=== PATIENT | male | born 1950 | race Caucasian/White ===

== ENCOUNTER 2018-09-07 10:56 | Emergency (ER) | payer SELFPAY ==
[~2018-09-07] VITALS: Ht 177.8 cm; Wt 101.6 kg
[2018-09-07] MEDS ORDERED: PIPERACILLIN-TAZOB 3.375GM 100 ML IV ONE (11:15)
[2018-09-07] MEDS ORDERED: CLINDAMYCIN 900MG IV 50 ML IV ONE (11:15)
[2018-09-07 11:54] LABS: Basophils # (auto) 0.1 uL; Eosinophils # (auto) 0.4 uL; Eosinophils % (auto) 5.6 % (0.0-7.0); Hematocrit 48.6 % (41.0-53.0); Hemoglobin 16.5 g/dL (13.5-17.5); Lymphocytes # (auto) 2.4 uL; Lymphocytes % (auto) 30.5 % (10.0-50.0); Mean Corpuscular Hemoglobin 29.9 pg (28.0-32.0); Mean Corpuscular Volume 87.9 fL (80.0-100.0); Monocytes # (auto) 0.5 uL; Monocytes % (auto) 6.5 % (0.0-12.0); Neutrophils # (auto) 4.4 uL; Neutrophils % (auto) 56.4 % (37.0-80.0); Nucleated Red Blood Cells % 0.1 %; Platelet Count (auto) 292 10^3/uL (140-450); Red Blood Cells 5.53 10^6/uL (4.5-5.90); Red Cell Distribution Width 13.4 % (11.8-14.3); White Blood Cell 7.8 10^3/uL (4.4-10.8)
[2018-09-07 12:06] LABS: Albumin 3.7 g/dL (3.4-5.0); Calcium 9.3 mg/dL (8.5-10.1); Potassium 3.3 mmol/L (3.5-5.1)
[2018-09-07 12:09] LABS: BUN/Creatinine Ratio 22.1; Bilirubin, Total 0.6 mg/dL (0.2-1.0); Total Protein 7.8 g/dL (6.4-8.2)
[2018-09-07] MEDS ORDERED: POTASSIUM EFFERVESENT TAB 25 MEQ PO ONE (12:45)
[2018-09-07 13:23] VITALS: BP 144/90
== END 2018-09-07 17:15 | disposition home or self-care (01) ==
LOC: ER 11:03
DX: L03.115 Cellulitis of right lower limb (principal); I10 Essential (primary) hypertension
CPT/HCPCS: 36415; 80053; 85025; 87040; 93971; 96365; 96366; 96368; 99285; J2543; J3490